=== PATIENT | male | born 1960 | race Caucasian/White ===

== ENCOUNTER 2017-02-23 22:36 | Emergency (ER) | payer SELFPAY ==
[~2017-02-23 22:36] MED LIST: Sodium Chloride 0.9% 1,000 ML BAG ONE
[2017-02-23] MEDS ORDERED: Ketorolac Tromethamine 30 MG/ML VIAL ONE (23:21)
--- NOTE | 2017-02-23 23:30 | RAD ---
TWO VIEWS CHEST: Date: 02-23-17 Provided Clinical History: Cough. FINDINGS: Comparison is made with the study dated 01-28-14. The cardiac and mediastinal silhouette is within no rmal limits. There is a questioned pulmonary nodule involving the left lung apex versus calcificatio n of the first costochondral cartilage. Lungs appear otherwise clear. No pleural fluid or pneumothor ax apparent. IMPRESSION: Possible left apical pulmonary nodule. Correlation with apical lordotic views or non-emergent chest CT recommended. POS: [facility]
[2017-02-24 00:09] LABS: #Basophils 0.2 thou/uL (0.0-0.2); #Eosinphils 0.4 thou/uL (0.0-0.7); #Lymphocytes 4.1 thou/uL (1.20-3.40); #Monocytes 0.7 thou/uL (0.11-0.59); #Neutrophils 7.5 thou/uL (1.40-6.50); %Basophils 1.4 % (0.0-1.0); %Eosinophils 2.8 % (0.0-10.0); %Monocytes 5.5 % (0.0-10.0); %Neutrophils 58.3 % (42.0-75.0); Hemoglobin 16.8 g/dL (14.0-18.0); Mean Corpuscular HGB CONC 34.9 g/dL (32.0-36.0); Mean Corpuscular Volume 88.8 fl (80.0-94.0); Mean Platelet Volume 7.6 fL (7.4-10.4); Platelet Count 440 thou/uL (130-400); RBC Distribution Width 11.6 % (11.5-14.5); Red Blood Cell (RBC) Count 5.43 mill/uL (4.70-6.10); White Blood Cell (WBC) Count 12.9 thou/uL (4.8-10.8)
[2017-02-24 00:19] LABS: ALT (SGPT) 76 U/L (8-55); AST (SGOT) 59 U/L (5-34); Albumin 4.2 g/dL (3.5-5.0); Alkaline Phosphatase 105 U/L (40-150); Anion Gap 20 mmol/L (10-20); BUN (Urea Nitrogen) 14 mg/dL (8.4-25.7); Bilirubin, Total 0.3 mg/dL (0.2-1.2); Calc. Creatinine Clearance 0 mL/min (70-130); Calcium 9.7 mg/dL (7.8-10.44); Carbon Dioxide 17 mmol/L (22-29); Chloride 107 mmol/L (98-107); Estimated GFR-MDRD Greater than 90; Globulin 3.1 g/dL (2.4-3.5); Glucose 85 mg/dL (70-105); Potassium 4.7 mmol/L (3.5-5.1); Protein, Total 7.3 g/dL (6.0-8.3); Sodium 139 mmol/L (136-145)
== END 2017-02-24 01:02 | disposition short-term general hospital (02) ==
LOC: MADERS 22:36
DX: M54.5 Low back pain (principal); R74.8 Abnormal levels of other serum enzymes; R91.1 Solitary pulmonary nodule; I10 Essential (primary) hypertension; F17.210 Nicotine dependence, cigarettes, uncomplicated; Z79.899 Other long term (current) drug therapy
CPT/HCPCS: 36415; 71020; 80053; 83605; 85025; 85652; 96361; 96374; 96375; 96376; J1170; J1885; J7050

== ENCOUNTER 2017-04-16 16:22 | Emergency (ER) | payer MEDICAID, SELFPAY ==
[~2017-04-16 16:22] MED LIST changes: +Iopamidol 370 76% 100 ML VIAL ONE; -Sodium Chloride 0.9% 1,000 ML BAG ONE
[2017-04-16] MEDS ORDERED: Sodium Chloride 0.9% 1,000 ML BAG ONE (16:25)
[2017-04-16 16:53] LABS: #Basophils 0.2 thou/uL (0.0-0.2); #Eosinphils 0.2 thou/uL (0.0-0.7); #Lymphocytes 3.4 thou/uL (1.20-3.40); #Monocytes 1.5 thou/uL (0.11-0.59); #Neutrophils 5.1 thou/uL (1.40-6.50); %Basophils 2.3 % (0.0-1.0); %Eosinophils 2.3 % (0.0-10.0); %Lymphocytes 32.4 % (21.0-51.0); %Monocytes 14.5 % (0.0-10.0); %Neutrophils 48.5 % (42.0-75.0); Hemoglobin 13.8 g/dL (14.0-18.0); Mean Corpuscular HGB CONC 32.5 g/dL (32.0-36.0); Mean Corpuscular Hemoglobin 29.8 pg (27.0-31.0); Mean Corpuscular Volume 91.8 fl (80.0-94.0); Mean Platelet Volume 7.3 fL (7.4-10.4); Platelet Count 279 thou/uL (130-400); RBC Distribution Width 14.7 % (11.5-14.5); Red Blood Cell (RBC) Count 4.62 mill/uL (4.70-6.10); White Blood Cell (WBC) Count 10.5 thou/uL (4.8-10.8)
[2017-04-16 17:13] LABS: ALT (SGPT) 129 U/L (8-55); AST (SGOT) 199 U/L (5-34); Albumin 2.8 g/dL (3.5-5.0); Alkaline Phosphatase 500 U/L (40-150); Anion Gap 17 mmol/L (10-20); BUN (Urea Nitrogen) 15 mg/dL (8.4-25.7); Bilirubin, Total 2.2 mg/dL (0.2-1.2); Calc. Creatinine Clearance 0 mL/min (70-130); Calcium 10.8 mg/dL (7.8-10.44); Carbon Dioxide 28 mmol/L (22-29); Chloride 88 mmol/L (98-107); Estimated GFR-MDRD Greater than 90; Globulin 3.7 g/dL (2.4-3.5); Glucose 101 mg/dL (70-105); Potassium 3.9 mmol/L (3.5-5.1); Protein, Total 6.5 g/dL (6.0-8.3); Sodium 129 mmol/L (136-145)
[2017-04-16 17:17] LABS: CKMB 0.7 ng/mL (0-6.6); Troponin I 0.015 ng/mL (< 0.028)
--- NOTE | 2017-04-16 18:31 | CT ---
CTA CHEST WITH CONTRAST 04/16/17 HISTORY: Dyspnea. COMPARISON: CT chest 02/24/17 as well as chest one view 03/13/17. TECHNIQUE: CT angiogram of chest performed after the intravenous administration of contrast. 3D rendering was p rovided. FINDINGS: There is a 2 cm mass left upper lobe with an adjacent small peripheral nodules concerning for malign jorge. There is a hypodensity in the left thyroid gland measuring 1 cm. There are numerous abnormal left hilar AP window prevascular lymph nodes as well as subcarinal lymph nodes. There are subsegmental pulmonary emboli in the right upper lobe involving the anterior and p osterior segments. Also segmental emboli within the right middle lobe pulmonary artery. Emboli also present within the posterior segment right lower lobe pulmonary artery. There is some small subsegme ntal emboli within the left lower lobe. Small left effusion as well as a nodule in the left lung base measuring 8 mm. There is extensive oss eous metastatic disease. There is a compression fracture at T4, T8 and T9 which are all likely patho logic. There are some large erosions, lytic osseous mets throughout the ribs, some more erosive than others , with some with healing pathologic fractures. There is encroachment of tumor involving the spinal canal on the left at T8 and narrowing the neural foramina. There is also encroachment of the spinal canal by tumor at the level of T12. IMPRESSION: 1. Multiple bilateral pulmonary emboli without right heart strain. 2. Extensive metastatic osseous disease with pathologic fractures of the thoracic spine and epi dural extension of tumor as described. 3. Dominant left upper lobe mass suspected malignancy. 4. Metastatic mediastinal adenopathy. Code CR. ER doctor notified of findings via telephone 5:55. POS: [facility]
--- NOTE | 2017-04-16 18:36 | CT ---
CT ABDOMEN AND PELVIS WITH CONTRAST 04/16/17 HISTORY: Right upper quadrant pain. Nausea and vomiting. COMPARISON: None. FINDINGS: There are innumerable metastasis throughout the liver. There is extensive osseous metastatic disease . There are pathologic compression fractures of L5, L4, L2. Metastasis involves the sacrum and ilium, an acetabulum and throughout the spine. There is narrowin g of the exiting sacral neural foramina bilaterally S1-S4 due to tumor. There is epidural spread of tumor at the level of L4. There is also epidural tumor at the level of L1. There is contrast within the renal collecting systems. There is a soft tissue density along the left pelvic sidewall which may represent a bladder diverticulum. There are metastasis of the adrenal gla nds. IMPRESSION: Diffuse metastatic disease involving the adrenal glands, liver, bones with pathologic compression fr actures as described above as well as epidural spread of tumor. Code CR POS: [facility]
--- NOTE | 2017-04-16 20:05 | CT ---
CT BRAIN WITHOUT CONTRAST 04/16/17 HISTORY: Dozing off for the past six days. COMPARISON: CT brain from 2014. FINDINGS: No acute territorial infarct or hemorrhage. No midline shift or mass effect. Ventricular size and ex tra-axial CSF spaces are normal. Calvarium is intact. The paranasal sinuses and mastoids are clear. IMPRESSION: 1. No acute intracranial abnormality. No significant change. 2. Relative hyperdensity of the tentorium cerebelli and posterior falx likely normal variant in this age of this patient. Layering subdural hemorrhage is felt less likely. CODE: NILA POS: [facility]
[2017-04-16] MEDS ORDERED: Enoxaparin Sodium 40 MG/0.4 ML SYRINGE ONE (20:10)
[2017-04-16 20:43] LABS: Bilirubin Negative (Negative); Blood, Urine Negative (Negative); Clarity Clear (Clear); Glucose, Urine (Dipstick) Negative (Negative); Leukocyte Negative (Negative); Nitrite Negative (Negative); Protein, Urine (Dipstick) Negative (Neg-Trace); Urobilinogen > or = 8.0 mg/dL (0.2-1.0); WBC/HPF 0-3 HPF (0-3)
[2017-04-16 20:44] LABS: Squamous Epithelial 0-3 HPF (0-3)
== END 2017-04-16 20:28 | disposition short-term general hospital (02) ==
LOC: MADERS 16:22
DX: I26.99 Other pulmonary embolism without acute cor pulmonale (principal); K75.9 Inflammatory liver disease, unspecified; E87.6 Hypokalemia; E87.1 Hypo-osmolality and hyponatremia; I10 Essential (primary) hypertension; C41.9 Malignant neoplasm of bone and articular cartilage, unspecified; F17.210 Nicotine dependence, cigarettes, uncomplicated; Z79.899 Other long term (current) drug therapy
CPT/HCPCS: 70450; 71275; 74177; 80053; 81001; 82553; 83880; 84484; 85025; 93005; 96361; 96372; 96374; 96376; J1650; J2270; J7050